=== PATIENT | female | born 1955 | race Caucasian/White ===

== ENCOUNTER 2017-06-04 08:48 | Inpatient (IN) | payer BC, OTHER ==
[2017-06-01 15:27] VITALS: BMI 26.0
--- NOTE | 2017-06-01 16:05 | PAT Medication Instructions ---
Service Date Jun 01, 2017. Current Home Medication List Amitriptyline Hcl (Elavil), 25 MG PO HS Amlodipine (Norvasc), 5 MG PO QAM Atorvastatin (Lipitor), 20 MG PO HS Bupropion (Wellbutrin Sr), 150 MG PO BID Clonazepam (Klonopin), 1 MG PO HS Melatonin (Melatonin), 2 TAB PO HS Omeprazole (Prilosec), 20 MG PO QAM Oxcarbazepine (Trileptal), 600 MG PO HS Sertraline (Zoloft), 150 MG PO QAM Tramadol (Ultram), 100 MG PO Q6H PRN for Pain Medication Instructions For Your Scheduled Surgery - Take the following medications the morning of surgery with a sip of water: Amlodipine (Norvasc), 5 MG PO QAM Bupropion (Wellbutrin Sr), 150 MG PO BID Omeprazole (Prilosec), 20 MG PO QAM Sertraline (Zoloft), 150 MG PO QAM Tramadol (Ultram), 100 MG PO Q6H PRN for Pain (okay to take up to 4 hours prior to surgery if needed) - Take the following medications as scheduled the night before surgery: Tramadol (Ultram), 100 MG PO Q6H PRN for Pain (if needed) Oxcarbazepine (Trileptal), 600 MG PO HS Melatonin (Melatonin), 2 TAB PO HS Clonazepam (Klonopin), 1 MG PO HS Bupropion (Wellbutrin Sr), 150 MG PO BID Atorvastatin (Lipitor), 20 MG PO HS Amitriptyline Hcl (Elavil), 25 MG PO HS If you have any questions please call us at [phone] or [phone] or [phone]
[2017-06-04] VITALS (7 sets, daily range): BP systolic 115–162; BP diastolic 69–96; PULSE 74–93; TEMP 36.6–36.9; O2SAT 91–99; Ht 167.6 cm; Wt 75.2 kg
[~2017-06-04] VITALS: Ht 167.6 cm; Wt 75.2 kg
[~2017-06-04 08:48] MED LIST: AMLO-110 PO; AMT50 PO; ATOR-22 PO; BUPR-79 PO; CEFAZOLIN 1000MG/55 ML D5W IV SCH; LACTATED RINGER'S 1000ML 1,000 ML IV SCH; MELA1TAB48 PO; OXCA600T2 PO; PRLSR20 PO; SERT-234 PO; TRAM-10 PO
--- NOTE | 2017-06-04 09:12 | History & Physical Bridge Note ---
H&P Re-Evaluation Bridge Note: I have examined the patient, reviewed the History & Physical and in the interval since the performance of the History & Physical I have noted the following changes of clinical significance: No changes noted
--- NOTE | 2017-06-04 09:13 | History and Physical ---
History & Physical Date Jun 04, 2017. Chief Complaint Back and leg pain History of Present Illness The patient is a 61 year old female with complaints of back and leg pain Additional History Hepatic Disease: No Endocrine Disorder: No Kidney Disease: No Hypertension: Yes Heart Disease: No Bleeding Tendencies: No Infectious Diseases: No Allergies Coded Allergies: No Known Allergies (Verified , 06/04/17) Home Medications Scheduled Amitriptyline Hcl (Elavil), 25 MG PO HS Amlodipine (Norvasc), 5 MG PO QAM Atorvastatin (Lipitor), 20 MG PO HS Bupropion (Wellbutrin Sr), 150 MG PO BID Melatonin (Melatonin), 2 TAB PO HS Omeprazole (Prilosec), 20 MG PO QAM Oxcarbazepine (Trileptal), 600 MG PO HS Sertraline (Zoloft), 150 MG PO QAM Scheduled PRN Tramadol (Ultram), 100 MG PO Q6H PRN for Pain Physical Examination Skin: warm/dry, no rash Eyes: normal inspection, EOMI, sclerae normal ENT: normal ENT inspection, pharynx normal Head: normocephalic, atraumatic Neck: supple, no adenopathy, trachea midline Respiratory/Chest: lungs clear, normal breath sounds, no respiratory distress Cardiovascular: regular rate, rhythm, no edema, no murmur Abdomen / GI: normal bowel sounds, non tender Back: normal inspection Extremities: normal inspection, normal range of motion Neurologic/Psych: no motor/sensory deficits, alert, normal reflexes, oriented x 3 Diagnosis Lumbar spinal stenosis with herniated nucleus pulposus Plan of Treatment Lumbar decompression and fusion L5-S1
[2017-06-04] MEDS ORDERED: BACITRACIN 50000 UNIT VIAL ONE (09:37)
[2017-06-04] MEDS ORDERED: BUPIVACAINE/EPINEPHRINE 0.5% MPF 1:200,000 30 ML VIAL ONE (09:37)
[2017-06-04] MEDS ORDERED: FENTANYL CITRATE INJ 50 MCG/1 ML 2 ML VIAL ONE ×4 (09:47→11:16)
[2017-06-04] MEDS ORDERED: MIDAZOLAM HCL 1 MG/ML 2ML VIAL ONE (09:47)
[2017-06-04] MEDS ORDERED: SODIUM CHLORIDE 0.9% PF 50 ML VIAL ONE (09:50)
[2017-06-04] MEDS ORDERED: HYDROmorphone INJ 2 MG/ML SYR/VIAL ONE (10:20)
[2017-06-04] MEDS ORDERED: DEXAMETHASONE SOD INJ 4 MG/ML VIAL ONE (10:23)
[2017-06-04] MEDS ORDERED: ONDANSETRON INJ 2 MG/ML 2 ML VIAL ONE (10:23)
[2017-06-04] MEDS ORDERED: LIDOCAINE HCL 2% 2 ML VIAL (20MG/ML) ONE (10:23)
[2017-06-04] MEDS ORDERED: PROPOFOL IV EMULSION 10 MG/ML 20 ML VIAL IV ONE (10:23)
[2017-06-04] MEDS ORDERED: GLYCOPYRROLATE INJ 0.2 MG/ML VIAL ONE (10:23)
[2017-06-04] MEDS ORDERED: EpHEDrine SULFATE 50MG/5ML SYR ONE (10:23)
[2017-06-04] MEDS ORDERED: NEOSTIGMINE METHYLSULFATE 1 MG/ML 10ML VIAL ONE (10:23)
[2017-06-04] MEDS ORDERED: FENTANYL CITRATE INJ 50 MCG/1 ML 2 ML VIAL IV PRN (10:45)
[2017-06-04] MEDS ORDERED: MEPERIDINE HCL 25 MG/ML CARP IV PRN (10:45)
[2017-06-04] MEDS ORDERED: EpHEDrine SULFATE INJ 50 MG/ML AMP IV PRN (10:45)
[2017-06-04] MEDS ORDERED: LABETALOL HCL IV 5 MG/ML 20ML IV PRN (10:45)
[2017-06-04] MEDS ORDERED: HYDROmorphone INJ 1 MG/ML SYR IV PRN (10:45)
[2017-06-04] MEDS ORDERED: ATROPINE SULFATE 0.1 MG/ML 5ML SYR IV PRN (10:45)
[2017-06-04] MEDS ORDERED: ONDANSETRON INJ 2 MG/ML 2 ML VIAL IV PRN ×2 (10:45→11:30)
[2017-06-04] MEDS ORDERED: FLOSEAL HEMOSTATIC MATRIX 10ML TOP ONE (11:11)
[2017-06-04] MEDS ORDERED: SODIUM CHLORIDE 0.9% 1000ML 1,000 ML IV SCH (11:19)
--- NOTE | 2017-06-04 11:28 | [facility] Operative Report ---
Operative Report Operative Date Jun 04, 2017. Pre-Operative Diagnosis Lumbar spinal stenosis with herniated nucleus pulposus Post-Operative Diagnosis Lumbar spinal stenosis with herniated nucleus pulposus Procedure(s) Performed #1 lumbar decompression medial facetectomies foraminotomies L4 5 L5-S1. #2 posterior spinal fusion L5-S1. #3 placement posterior instrumentation L5-S1. #4 interbody fusion L5-S1. #5 placement peek cage 13 x 26 mm at L5-S1. #6 placement of locally harvested morcellized autograft and posterior gutters. #7 placement of ostial amp in the interbody space and posterior lateral gutters. Surgeon Dr. Andrew Bassett Knitting Machine Operator Helper Surgeon(s) Elen Hopkins PA-C Estimated Blood Loss 100ML Findings Spondylolisthesis with massive herniated nucleus pulposus Specimens none per surgeon Dr. Bassett Description of Procedure Patient was met with preoperative early case discussed all questions were addressed. After informed consent patient was taken to the operative suite and underwent intubation placed in a prone position the Scuddy table top Tip frame. All bony prominences were well-padded eyes inspected to ensure no external pressure. This point the lumbar spine is prepped and draped nostril fashion. Sharp dissection with the assistance of Bovie cautery was performed onto an exposing the lamina and transverse processes of L5-S1. Obvious pars defect appreciate. A complete laminectomy of L5 was performed partial laminectomy of L4 addressing severe lateral recess stenosis as well as a massive cephalad disc herniation from the 51 level on the right. After this complete pedicle screws are placed in L5-S1 levels bilaterally with assistance of fluoroscopy the purposes ginny placed. Through a transforaminal approach on the right a complete discectomy performed and plate created to subcortical bleeding bone and a 13 x 26 mm peek cage filled with ostial amp tapped into position. Brought to then compressed locked into final position bilaterally. The transverse processes of L5 and sacral alar burred to subcortical bleeding bone. The remaining osteo-amp local harvested morcellized autograft placed in the posterior gutters. 15 round EVA drain inserted. Incision then closed with 1 Vicryl fascia 2-0 Vicryl subcutaneous C4 0 Monocryl for final skin closure Steri-Strip sterile dressing placed patient we can taken to PACU stable condition. Please note Elen Waters was present at the entire procedure involved in patient positioning complex portions of the surgery and final skin closure. I attest to the content of the Intraoperative Record and any orders documented therein. Any exceptions are noted below.
[2017-06-04] MEDS ORDERED: LORAZEPAM INJ 0.5 MG in SYRINGE 0.75 ML IV PRN (11:30)
[2017-06-04] MEDS ORDERED: FAMOTIDINE 20 MG TAB PO PRN (11:30)
[2017-06-04] MEDS ORDERED: LORAZEPAM 0.5 MG TAB PO PRN (11:30)
[2017-06-04] MEDS ORDERED: ACETAMINOPHEN 500 MG TAB PO PRN (11:30)
[2017-06-04] MEDS ORDERED: ALUMINUM/MAGNESIUM SUSP 30 ML UDC PO PRN (11:30)
[2017-06-04] MEDS ORDERED: ACETAMINOPHEN IV 100 ML IV PRN (11:30)
[2017-06-04] MEDS ORDERED: DO NOT ADMINISTER PNEUMOCOCCAL VACCINE PRN ×2 (11:30)
[2017-06-04] MEDS ORDERED: MAGNESIUM HYDROXIDE SUSP 30 ML UDC PO PRN (11:30)
[2017-06-04] MEDS ORDERED: SOD PHOSPHATE/SOD BIPHOSPHATE ENEMA 132 ML BTL PR PRN (11:30)
[2017-06-04] MEDS ORDERED: METOCLOPRAMIDE HCL INJ 5 MG/ML 2 ML VIAL IV PRN (11:30)
[2017-06-04] MEDS ORDERED: DO NOT ADMINISTER FLU VACCINE PRN ×3 (11:30)
[2017-06-04] MEDS ORDERED: PROMETHAZINE HCL INJ 12.5 MG in SODIUM CHLORIDE 0.9% 50ML 50 ML IV PRN (11:30)
[2017-06-04] MEDS ORDERED: hydrOXYzine HCL 25 MG TAB PO PRN (11:30)
[2017-06-04] MEDS ORDERED: TRAMADOL HCL 50 MG TAB PO PRN (11:30)
[2017-06-04] MEDS ORDERED: BISACODYL 10 MG SUPP PR PRN (11:30)
[2017-06-04] MEDS ORDERED: NALOXONE HCL 0.4 MG/1 ML VIAL/CARP IV PRN ×2 (11:30)
--- NOTE | 2017-06-04 11:30 | DIAGNOSTIC IMAGING REPORT ---
INTRAOPERATIVE RADIOGRAPHS CLINICAL HISTORY: L5-S1 spinal fusion. Fluoroscopy time: 16 seconds. FINDINGS: 2 spot fluoroscopic views of the lumbar spine are presented. There is been laminectomy and posterior fusion at L5-S1. Interpedicular screws are present at both levels. Orthopedic hardware appears intact. There has been discectomy at this level. IMPRESSION: Intraoperative images from L5 -S1 spinal fusion as above. Electronically signed by: Donald Roland M.D. 06/04/2017 11:29 AM Dictated Date/Time: 06/04/2017 11:28 AM
[2017-06-04] MEDS ORDERED: KETOROLAC TROMETHAMINE 30 MG/ML VIAL ONE (11:33)
[2017-06-04] MEDS: HYDROmorphone HCL 0.5MG/ML 50 ML CASSETTE IV PRN ×4 (11:51→22:52)
--- NOTE | 2017-06-04 12:25 | Anesthesiology Progress Note ---
Anesthesia Post Op Note Date & Time Jun 04, 2017 at 12:25 Vital Signs Pain Intensity: 4 Vital Signs Past 12 Hours Date Time Temp Pulse Resp B/P (MAP) Pulse Ox O2 Delivery O2 Flow Rate FiO2 06/04/17 12:16 36.6 06/04/17 12:13 84 16 100 06/04/17 12:13 86 16 06/04/17 12:11 157/85 06/04/17 12:08 78 18 06/04/17 12:08 78 18 100 06/04/17 12:06 153/75 06/04/17 12:03 74 16 100 06/04/17 12:03 74 16 06/04/17 12:02 81 19 06/04/17 12:02 81 19 100 06/04/17 12:01 154/78 06/04/17 11:57 76 15 06/04/17 11:57 76 15 155/64 100 06/04/17 11:52 81 14 100 06/04/17 11:52 81 14 06/04/17 11:51 146/75 06/04/17 11:47 79 14 06/04/17 11:47 79 14 98 06/04/17 11:46 145/78 06/04/17 11:42 74 17 06/04/17 11:42 71 17 100 06/04/17 11:41 127/78 06/04/17 11:37 36.8 82 16 115/91 96 Oxymask 10 06/04/17 11:37 83 14 115/91 94 06/04/17 11:37 83 14 06/04/17 09:05 36.7 74 18 162/96 99 Room Air Notes Mental Status: alert / awake / arousable, participated in evaluation Pt Amnestic to Procedure: Yes Nausea / Vomiting: adequately controlled Pain: adequately controlled Airway Patency, RR, SpO2: stable & adequate BP & HR: stable & adequate Hydration State: stable & adequate Anesthetic Complications: no major complications apparent
[2017-06-04] MEDS: LACTATED RINGER'S 1000ML 1,000 ML IV SCH ×3 (13:23→23:22)
[2017-06-04] MEDS: DEXAMETHASONE INJ 6 MG in SYRINGE 0 ML IV SCH (18:29)
[2017-06-04] MEDS: CEFAZOLIN IV 1,000 MG in DEXTROSE 5% 50ML 50 ML IV SCH (18:44)
[2017-06-04] MEDS: ATORVASTATIN 20 MG TAB PO SCH (20:56)
[2017-06-04] MEDS: AMITRIPTYLINE HCL 25 MG TAB PO SCH (20:56)
[2017-06-04] MEDS: DOCUSATE SODIUM/SENNA 50/8.6MG TAB PO SCH (20:57)
[2017-06-04] MEDS: BuPROPion SR 150 MG TABCR PO SCH (20:57)
[2017-06-04] MEDS: OXCARBAZEPINE 150 MG TAB PO SCH (20:58)
[2017-06-05] VITALS (9 sets, daily range): BP systolic 152–178; BP diastolic 77–84; PULSE 71–90; TEMP 36.6–36.8; O2SAT 92–99
[2017-06-05] MEDS: DEXAMETHASONE INJ 6 MG in SYRINGE 0 ML IV SCH ×2 (01:40→10:48)
[2017-06-05] MEDS: CEFAZOLIN IV 1,000 MG in DEXTROSE 5% 50ML 50 ML IV SCH (01:40)
[2017-06-05] MEDS ORDERED: HYDROmorphone INJ 1 MG/ML SYR IV PRN (06:00)
[2017-06-05] MEDS ORDERED: HYDROmorphone INJ 0.5 MG/0.5 ML SYR IV PRN (06:00)
[2017-06-05] MEDS ORDERED: DC PCA SCH (06:00)
[2017-06-05] MEDS ORDERED: NURSING VERBAL MED ORDER ONE (06:15)
[2017-06-05 06:44] LABS: BASO % 0.1 %; BASO ABS # 0.01 K/uL (0-0.2); COMPLETE YES; HEMATOCRIT 34.7 % (37-47); IG% 0.7 %; LYMPH % 5.4 %; MEAN CELL VOLUME 96.7 fL (80-100); MEAN CORPUSCULAR HEMOGLOBIN 32.6 pg (25-34); MEAN CORPUSCULAR HGB CONC 33.7 g/dl (32-36); MEAN PLATELET VOLUME 9.2 fL (7.4-10.4); MONO % 2.4 %; NEUT % 91.4 %; PLATELET COUNT 261 K/uL (130-400); RED BLOOD COUNT 3.59 M/uL (4.2-5.4); WHITE BLOOD COUNT 18.38 K/uL (4.8-10.8)
[2017-06-05 06:57] LABS: BUN/CREATININE RATIO 19.4 (10-20); CREATININE 0.74 mg/dl (0.60-1.20); POTASSIUM 4.3 mmol/L (3.5-5.1)
[2017-06-05] MEDS: AMLODIPINE BESYLATE 5 MG TAB PO SCH (08:14)
[2017-06-05] MEDS: SERTRALINE HCL 50 MG TAB PO SCH (08:15)
[2017-06-05] MEDS: BuPROPion SR 150 MG TABCR PO SCH ×2 (08:15→20:32)
--- NOTE | 2017-06-05 08:25 | Anesthesiology Progress Note ---
Anesthesia Post Op Note Date & Time Jun 05, 2017 at 08:24 Vital Signs Vital Signs Past 12 Hours Date Time Temp Pulse Resp B/P (MAP) Pulse Ox O2 Delivery O2 Flow Rate FiO2 06/05/17 07:27 36.6 72 16 161/77 (105) 92 Room Air 06/05/17 03:44 36.7 71 16 153/78 (103) 93 Room Air 06/04/17 23:27 Room Air 06/04/17 23:12 36.9 93 16 145/77 (99) 95 Room Air Notes Mental Status: alert / awake / arousable, participated in evaluation Pt Amnestic to Procedure: Yes Nausea / Vomiting: adequately controlled Pain: adequately controlled Airway Patency, RR, SpO2: stable & adequate BP & HR: stable & adequate Hydration State: stable & adequate Anesthetic Complications: no major complications apparent
[2017-06-05] MEDS: OXYCODONE HCL IR 5 MG TAB (IMMEDIATE RELEASE) PO PRN ×3 (10:48→23:51)
--- NOTE | 2017-06-05 15:56 | Progress Note ---
Progress Note Date of Service Jun 05, 2017. Progress Note Patient overall is doing quite well marked improvement of leg pain. Ambulating without difficulty. Vital signs stable. On exam she is good strength testing appears comfortable. Assessment status post lumbar decompression fusion replant this time will continue physical therapy anticipate possible home tomorrow.
[2017-06-05] MEDS ORDERED: RXC5 PO (16:08)
--- NOTE | 2017-06-05 16:09 | Discharge Instructions ---
Discharge Instructions Date of Service Jun 05, 2017. Admission Reason for Admission: Lumbar Spinal Stenosis Discharge Discharge Diagnosis / Problem: lumbar stenosis Discharge Goals Goal(s): Improve function Activity Recommendations Activity Limitations: per Instructions/Follow-up section . Instructions / Follow-Up Instructions / Follow-Up ACTIVITY RECOMMENDATIONS: SELF CARE INSTRUCTIONS AFTER THORACIC/LUMBAR FUSIONS 1. You may walk to your tolerance. It is good exercise for your legs and back. Expect some back and intermittent leg aches and pains. 2. You may perform "counter-top" level activities (make a sandwich, lucinda with a project, etc.). 3. No bending or lifting of more than 10 pounds or back twisting of any nature (roll like a log when turning in bed). 4. You may ride in a car for 20-30 minutes at a time. No driving until after your first visit with your doctor. 5. Frequent changes of position and restricting sitting to 30 minutes at a time will help limit the amount of back spasms and stiffness you may experience. 6. You may discontinue the use of ambulatory aids (cane, crutches, etc.) once your strength and confidence allow. 7. You may sewing machine bobbin winder the shower and let water strike your incision when you arrive home at least once daily. Do not take a tub bath, sit in a hot tub or go into a swimming pool until after your first recheck in the office. SPECIAL CARE INSTRUCTIONS: VERY IMPORTANT TO READ AND REVIEW A. Your surgical incision has been closed with a cosmetic suture under the skin that will dissolve in about 6 weeks. In 14 days, you can use a pair of clean scissors and cut the suture that is left outside of the skin at the ends of your incision. 1. The small skin tapes can be removed 7 days after surgery if they have not fallen off by that point. 2. You may keep the wound open to air as much as possible to promote healing after post-op day number 5 unless told otherwise by your doctor. 3. If you think the wound looks like it is becoming infected (redness or worsening drainage) and/or you are experiencing fever, chill or worsening back pain and muscle spasms, contact the office so that we may evaluate you as soon as possible. B. Complications are uncommon, but please contact us if you have any signs or symptoms of: 1. wound infection (fever higher than 102.5 degrees F, redness, separation of wound, drainage, or increasing pain from the incision) 2. blood clots in legs (pain, swelling, redness and warmth in legs) 3. urinary tract infection (fever higher than 102.5 degrees F, burning upon urination or increased frequency of urination) 4. nerve problems (inability to walk on your toes or heels, numbness, loss of bowel or bladder control) 5. any other symptoms that concern you C. Please call the office at if you have any concerns or questions about your operation or recovery. D. No smoking! Smoking drastically decreases the chance of a solid fusion. E. Do not take any anti-inflammatory medications (Indocin, Advil, Motrin, Aspirin, Naprosyn, etc.) as these may inhibit the chance of a solid fusion. Tylenol is okay to take for pain. MANAGING PAIN AFTER SPINAL SURGERY 1. Narcotic medication is intended for short-term use and will be provided for surgical pain. Surgical pain usually lasts for a period of 4-6 weeks. Narcotic medication includes Percocet, Vicodin, Darvocet, Tylenol #3 or Lortab. 2. Longer-term pain is more appropriately treated with non-narcotic medication such as Tylenol ES. 3. Muscle spasm is not appropriately treated with narcotics. Muscle relaxers such as Soma, Flexeril or Skelaxin can be used along with Tylenol ES. 4. Remember that we all live with some "aches and pains". This is not unusual or uncommon after an injury or as we get older. a. Back pain is expected and may include muscle spasms for 4 to 6 weeks after surgery. The pain should gradually improve. If the pain worsens for no apparent reason, please contact the office. b. Intermittent leg pain may also be experienced and should not be concerned about unless it worsens for no apparent reason. If so, please contact the office. 5. We will provide appropriate medication within the normal guidelines of their prescribed use. We will also be very cautious and aware of potential abuse and extended duration of patients' medication needs. a. Pain medications are for your comfort and to assist with sleep and rest so that the tissue can heal. They are not provided in order to return to normal activity and should not be used through the day. To do so or worsening pain at night can result from ongoing tissue damage and development of tolerance to the prescribed medicine. 6. Please allow 2-3 days to process refills. Prescriptions will not be mailed but must be picked up at the office. FOLLOW UP VISIT: Keep your scheduled follow-up appointment. Any questions, please call the office at . Current Hospital Diet Patient's current hospital diet: Regular Diet Discharge Diet Recommended Diet: Regular Diet Procedures Procedures Performed: #1 lumbar decompression medial facetectomies foraminotomies L4 5 L5-S1. #2 posterior spinal fusion L5-S1. #3 placement posterior instrumentation L5-S1. #4 interbody fusion L5-S1. #5 placement peek cage 13 x 26 mm at L5-S1. #6 placement of locally harvested morcellized autograft and posterior gutters. #7 placement of ostial amp in the interbody space and posterior lateral gutters. Pending Studies Studies pending at discharge: no Medical Emergencies . Who to Call and When: Medical Emergencies: If at any time you feel your situation is an emergency, please call 911 immediately. . Non-Emergent Contact Non-Emergency issues call your: Primary Care Provider . "Provider Documentation" section prepared by Andrew Bassett. . VTE Core Measure Inpt VTE Proph given/why not?: Ju [place], NADYA's
[2017-06-05] MEDS: AMITRIPTYLINE HCL 25 MG TAB PO SCH (20:33)
[2017-06-05] MEDS: ATORVASTATIN 20 MG TAB PO SCH (20:33)
[2017-06-05] MEDS: DOCUSATE SODIUM/SENNA 50/8.6MG TAB PO SCH (20:34)
[2017-06-05] MEDS: OXCARBAZEPINE 150 MG TAB PO SCH (20:34)
[2017-06-06] MEDS ORDERED: POLYETHYLENE (MIRALAX) 17 GM PACK PO SCH (06:00)
[2017-06-06] MEDS: OXYCODONE HCL IR 5 MG TAB (IMMEDIATE RELEASE) PO PRN ×2 (06:39→12:25)
[2017-06-06 07:27] VITALS: BP 141/88; PULSE 76; TEMP 36.8; O2SAT 97
[2017-06-06] MEDS: AMLODIPINE BESYLATE 5 MG TAB PO SCH (08:24)
[2017-06-06] MEDS: BuPROPion SR 150 MG TABCR PO SCH (08:24)
[2017-06-06] MEDS: SERTRALINE HCL 50 MG TAB PO SCH (08:24)
[2017-06-06 10:46] VITALS: BP 141/88; PULSE 76; TEMP 36.8; O2SAT 97
--- NOTE | 2017-06-06 10:47 | Discharge Summary ---
Orthopedic Discharge Summary Admission Date/Reason Jun 04, 2017 at 09:40 Lumbar Spinal Stenosis. Discharge Date/Disposition Jun 06, 2017 Home Diagnosis Principal Diagnosis: Lumbar spinal stenosis Admission Physical Exam As per Admitting History & Physical. Hospital Course Patient underwent lumbar decompression fusion tolerated this well was taken to the orthopedic floor postoperatively. Postoperative day #1 she was up and amatory progressed to postoperative day #2 EVA drain decreased appropriately substernally discharge home discharge orders and instructions found on the chart for further review. Discharge Instructions Please refer to the electronic Patient Visit Report (Discharge Instructions) for additional information.
== END 2017-06-06 12:45 | disposition home health service (06) | DRG 460 ==
LOC: C.ACU 08:48 → C.3E 09:40 → ENRESERV 12:22
PROVIDERS: ADMIT Orthopaedic Surgery Orthopaedic Surgery of the Spine; ATTEND Orthopaedic Surgery Orthopaedic Surgery of the Spine
PROC: 0ST40ZZ Resection of Lumbosacral Disc, Open Approach (ICD-10-PCS; principal; 2017-06-04 10:45)
PROC: 0SG30A1 (ICD-10-PCS; principal; 2017-06-04 10:45)
DX: M48.06 Spinal stenosis, lumbar region (principal); M51.26 Other intervertebral disc displacement, lumbar region; Z79.899 Other long term (current) drug therapy

== ENCOUNTER → 2017-08-10 | Outpatient (CLI) | payer OTHER ==
[~2017-08-10] MED LIST changes: -CEFAZOLIN 1000MG/55 ML D5W IV SCH; +DICL-201 PO; -LACTATED RINGER'S 1000ML 1,000 ML IV SCH; +METO25TA3 PO; +SULF800T23 PO
--- NOTE | 2017-08-10 08:47 | DIAGNOSTIC IMAGING REPORT ---
ABSCESS/FISTULA/SINUS TRACT CLINICAL HISTORY: NON HEALING WOUND ABD wound drainage TECHNIQUE: Fluoroscopic guidance COMPARISON STUDY: None FINDINGS: Following description of procedure and informed consent, a variety of catheters were utilized to attempt to cannulate a fistulous tract of the lower mid abdominal wall. Contrast is seen to collect within the soft tissue fold. A true abscess cavity or collection is not appreciated. There is no evidence for fistulous tract. IMPRESSION: No evidence for abscess cavity or fistulous tract. Surface wound is noted. The patient notes that no drainage has occurred within the prior week. The above report was generated using voice recognition software. It may contain grammatical, syntax or spelling errors. Electronically signed by: Theron Strauss M.D. 08/10/2017 8:46 AM Dictated Date/Time: 08/10/2017 8:44 AM
== END | disposition home or self-care (01) ==
LOC: C.RAD 07:57
PROVIDERS: ATTEND Emergency Medicine
DX: L98.499 Non-pressure chronic ulcer of skin of other sites with unspecified severity (principal)

== ENCOUNTER 2017-12-21 07:05 | Day surgery (SDC) | payer OTHER ==
[2017-12-08 13:33] VITALS: Ht 167.6 cm; Wt 81.8 kg
[~2017-12-21] VITALS: Ht 167.6 cm; Wt 81.8 kg
[~2017-12-21 07:05] MED LIST changes: +CEFAZOLIN 2000MG IV PUSH 15 ML IV SCH; +LACTATED RINGER'S 1000ML 1,000 ML IV SCH; -SULF800T23 PO; +SUMA100T16 PO; -TRAM-10 PO
[2017-12-21 07:44] VITALS: BP 146/73; PULSE 71; TEMP 37; O2SAT 92
[2017-12-21] MEDS ORDERED: EpHEDrine SULFATE INJ 50 MG/ML AMP IV PRN (08:00)
[2017-12-21] MEDS ORDERED: ATROPINE SULFATE 0.1 MG/ML 5ML SYR IV PRN (08:00)
[2017-12-21] MEDS ORDERED: FENTANYL CITRATE INJ 50 MCG/1 ML 2 ML VIAL IV PRN (08:00)
[2017-12-21] MEDS ORDERED: ONDANSETRON INJ 2 MG/ML 2 ML VIAL IV PRN ×2 (08:00→13:15)
[2017-12-21] MEDS ORDERED: PHENYLEPHRINE HCL INJ 10 MG/ML VIAL ONE (10:38)
[2017-12-21] MEDS ORDERED: ONDANSETRON INJ 2 MG/ML 2 ML VIAL ONE (10:38)
[2017-12-21] MEDS ORDERED: NEOSTIGMINE METHYLSULFATE 5 MG/5 ML SYR ONE (10:38)
[2017-12-21] MEDS ORDERED: EpHEDrine SULFATE INJ 50 MG/ML AMP ONE (10:38)
[2017-12-21] MEDS ORDERED: LIDOCAINE HCL 2% 2 ML VIAL (20MG/ML) ONE (10:38)
[2017-12-21] MEDS ORDERED: MIDAZOLAM HCL 1 MG/ML 2ML VIAL ONE (10:38)
[2017-12-21] MEDS ORDERED: DEXAMETHASONE SOD INJ 4 MG/ML VIAL ONE (10:38)
[2017-12-21] MEDS ORDERED: GLYCOPYRROLATE INJ 0.2 MG/ML VIAL ONE (10:38)
[2017-12-21] MEDS ORDERED: PROPOFOL IV EMULSION 10 MG/ML 20 ML VIAL IV ONE (10:38)
[2017-12-21] MEDS ORDERED: SUCCINYLCHOLINE CHLORIDE 20 MG/ML 10 ML VIAL IV ONE (10:38)
[2017-12-21] MEDS ORDERED: FENTANYL CITRATE INJ 50 MCG/1 ML 2 ML VIAL ONE (10:39)
[2017-12-21] MEDS ORDERED: BUPIVACAINE 0.5 % 5 MG/1 ML MPF 30ML VIAL ONE (10:42)
[2017-12-21] MEDS ORDERED: CEFAZOLIN SOD 1 GM VIAL ONE ×2 (10:42→10:48)
[2017-12-21] MEDS ORDERED: BACITRACIN 50000 UNIT VIAL ONE (10:43)
[2017-12-21] MEDS ORDERED: SODIUM CHLORIDE 0.9% 1000ML 1,000 ML IV SCH (13:13)
--- NOTE | 2017-12-21 13:13 | [facility] Post Operative Brief Note ---
Immediate Operative Summary Operative Date Dec 21, 2017. Pre-Operative Diagnosis Chronic abdominal wound infection Post-Operative Diagnosis Same Procedure(s) Performed Exploration Chronic Abdominal Wound Surgeon Dr Villavicencio Educational Technology Coordinator Surgeon(s) None Estimated Blood Loss 5ml Findings Consistent with Post-Op Diagnosis Specimens A. abdominal wall tissue Anesthesia Type General Complication(s) none Disposition Disposition: Surgical ICU
[2017-12-21] MEDS ORDERED: MoRPHine SULFATE 4 MG/ML 1 ML CARP\\VIAL IV PRN (13:15)
[2017-12-21] MEDS ORDERED: OXYCODONE/ACETAMINOPHEN 5-325 TAB PO PRN (13:15)
--- NOTE | 2017-12-21 13:19 | Discharge Instructions ---
Discharge Instructions Date of Service Dec 21, 2017. Admission Reason for Admission: Chronic Abdominal Wound Infection Discharge Discharge Diagnosis / Problem: same Discharge Goals Goal(s): Decrease discomfort, Improve function Activity Recommendations Activity Limitations: per Instructions/Follow-up section No heavy lifting over 10 pounds for 2 weeks No strenuous activity until cleared by surgeon No submerging incision underwater for 2 weeks (no swimming, bathing, or hot tubs ) No driving while taking narcotic pain medication or until you are pain free . Instructions / Follow-Up Instructions / Follow-Up You may shower in 24 hours. You may take outer dressing off and replace as needed. Leave steri strips on incision for 10 days and then remove. They may fall off on their own that is okay. Walking and light activity is encouraged to prevent blood clots from forming You will be given narcotic pain medication (Percocet) to take as needed for moderate to severe pain. This medication may make you drowsy and can cause constipation. May take OTC stool softener (such as Colace), prune juice, gentle laxative, and drink plenty of water to combat constipation. You may take extra strength Ibuprofen as needed for mild pain, you may take extra strength Tylenol as needed for mild pain if you are no longer taking Percocet as Percocet has Tylenol in it. Follow-up in surgical office in 2 weeks, please call office at [phone] if you do not already have an appointment Current Hospital Diet Patient's current hospital diet: Discharge Diet Recommended Diet: Regular Diet Procedures Procedures Performed: Exploration Chronic Abdominal Wound Pending Studies Studies pending at discharge: yes List of pending studies: excision pathology Medical Emergencies . Who to Call and When: Medical Emergencies: If at any time you feel your situation is an emergency, please call 911 immediately. . Non-Emergent Contact Non-Emergency issues call your: Primary Care Provider, Surgeon Call Non-Emergent contact if: you have a fever, temperature is above 101, your pain is not controlled, your pain is worsening, your pain is unusual for you, wound has increased drainage, wound has increased redness, wound has increased pain . "Provider Documentation" section prepared by Evelyn Ribeiro. .
[2017-12-21 13:25] VITALS: BP 160/84; PULSE 88; TEMP 36.8; O2SAT 95
[2017-12-21 13:55] VITALS: BP 151/79; PULSE 67; TEMP 37; O2SAT 93
--- NOTE | 2017-12-21 16:15 | Anesthesiology Progress Note ---
Anesthesia Post Op Note Date & Time Dec 21, 2017 at 16:15 Vital Signs Pain Intensity: 0 Vital Signs Past 12 Hours Date Time Temp Pulse Resp B/P (MAP) Pulse Ox O2 Delivery O2 Flow Rate FiO2 12/21/17 13:55 37.0 67 18 151/79 93 Room Air 12/21/17 13:25 36.8 88 18 160/84 95 Room Air 12/21/17 13:15 37.2 65 14 158/83 94 Room Air 12/21/17 13:10 37.2 62 14 148/83 94 Room Air 12/21/17 13:00 72 14 143/88 94 Room Air 12/21/17 12:50 67 14 151/86 100 Oxymask 10 12/21/17 12:40 36.7 69 14 173/103 96 Oxymask 10 12/21/17 07:44 37 71 18 146/73 (97) 92 Room Air Notes Mental Status: alert / awake / arousable, participated in evaluation Pt Amnestic to Procedure: Yes Nausea / Vomiting: adequately controlled Pain: adequately controlled Airway Patency, RR, SpO2: stable & adequate BP & HR: stable & adequate Hydration State: stable & adequate Anesthetic Complications: no major complications apparent
--- NOTE | 2017-12-21 20:34 | OPERATIVE REPORT ---
DATE OF OPERATION: 12/21/2017 PREOPERATIVE DIAGNOSIS: Recurrent draining inferior portion of a vertical midline incision. POSTOPERATIVE DIAGNOSIS: Recurrent draining inferior portion of a vertical midline incision with probable stitch granuloma. PROCEDURE: Removal of granuloma and stitch. SURGEON: Theron Villavicencio MD. FINDINGS: The patient had a previous vertical midline incision and had a chronically draining what appeared to be a tract. It had been explored in the office without an etiology. During the procedure, there was thickening of the tissue beneath that area and in dissecting that away from the surrounding tissues and then the fascia, there was a Prolene suture and the knot in the center of this area and I suspect that this was a suture granuloma. The suture was divided. The entire palpable thickening was removed. TECHNIQUE: The area was marked in the preop holding area. She was taken to the operating room and given a general anesthesia. The elliptical incision surrounding the area that would chronically open was made on the left and then right side, carried down through the skin to the subcutaneous tissue and ensured to stay back around the area in the normal appearing fat. I then began to dissect down towards the fascia on the left side and on the right side and in dissecting on the left side I encountered the Prolene suture. I elevated the Prolene suture and cut it which then allowed it to relax through and allowed me to visualize the knot which appeared to be within the center of the area that was being dissected. In order to get the entire granulomatous area to prevent recurrence I then shaved it off the fascia and removed it in total. I then reinforced the fascia with 0 PDS interrupted sutures. The deep subcutaneous tissue was then closed with a running 2-0 Vicryl, the superficial subcutaneous tissue was closed with running 3-0 Vicryl and the skin was closed with a running 3-0 Monocryl in a subcuticular fashion. The estimated blood loss was 5 mL. Sponge, needle and instrument counts were correct prior to closure. The skin was anesthetized with 0.5% Marcaine. The skin was cleansed, dried, benzoin placed, Steri-Strips applied. The patient tolerated the surgical procedure without complication and was transferred to recovery. I attest to the content of the Intraoperative Record and any orders documented therein. Any exception s are noted below.
== END 2017-12-21 14:08 | disposition home or self-care (01) ==
LOC: C.ACU 07:05
PROVIDERS: ATTEND Surgery
DX: S31.109D Unspecified open wound of abdominal wall, unspecified quadrant without penetration into peritoneal cavity, subsequent encounter (principal); L08.9 Local infection of the skin and subcutaneous tissue, unspecified; F17.200 Nicotine dependence, unspecified, uncomplicated; F32.9 Major depressive disorder, single episode, unspecified; E78.00 Pure hypercholesterolemia, unspecified; I10 Essential (primary) hypertension; X58.XXXD Exposure to other specified factors, subsequent encounter; K21.9 Gastro-esophageal reflux disease without esophagitis; Z86.14 Personal history of Methicillin resistant Staphylococcus aureus infection